=== PATIENT | female | born 1945 | race Caucasian/White ===

== ENCOUNTER 2024-01-26 19:08 | Emergency (ER) | payer MEDICARE, OTHER, SELFPAY ==
[2024-01-26 19:32] VITALS: BP 137/88
[2024-01-26] MEDS: TORADOL 30 MG IM (20:21)
--- NOTE | 2024-01-26 20:49 | ED.GENMED ---
History of Present Illness
<Talon Shaffer PA-C - Last Filed: 01/26/24 23:08>
General
Chief Complaint: Jaw Pain
Time Seen by Provider: 01/26/24 19:46
History of Present Illness
History of Present Illness:
78-year-old female presents the emergency department for evaluation of a left jaw dislocation that began when yawning. She is unable to close the mouth fully. This is never happened in the past
Review of Systems
<Talon Shaffer PA-C - Last Filed: 01/26/24 23:08>
Review of Systems
Allergies reviewed?: Yes
All Other Systems: ROS reviewed and negative except as documented in HPI and ROS
Phy Exam
<Talon Shaffer PA-C - Last Filed: 01/26/24 23:08>
Physical Exam
Physical Exam:
GEN: Well appearing, NAD, WDWN
HEENT: Oral mucosa moist, no scleral icterus, left TMJ deformity consistent with dislocation
Cardiac: Regular rate
Lung: No respiratory distress, no tachypnea
MSK: No gross deformity or injuries
Skin: Good color, no pallor or jaundice, no rashes
Neuro: AO x3, moves all extremities freely
Psych: Calm, cooperative
Course
<Talon Shaffer PA-C - Last Filed: 01/26/24 23:08>
Orders/Labs/Results
Orders:
Orders
01/26/24 20:06
Ketorolac [Toradol] 30 mg IM NOW STA
Vital Signs
Initial and Last Documented VS:
Initial Vital Signs
Temp Pulse Resp BP Pulse Ox
98.0 F 70 18 137/88 98
01/26/24 19:32 01/26/24 19:32 01/26/24 19:32 01/26/24 19:32 01/26/24 19:32
Last Documented Vital Signs
Temp Pulse Resp BP Pulse Ox
98.0 F 70 18 137/88 98
01/26/24 19:32 01/26/24 19:32 01/26/24 19:32 01/26/24 19:32 01/26/24 19:32
<Dano Salguero DO - Last Filed: 01/27/24 01:59>
Orders/Labs/Results
Orders:
Orders
01/26/24 20:06
Ketorolac [Toradol] 30 mg IM NOW STA
Vital Signs
Initial and Last Documented VS:
Initial Vital Signs
Temp Pulse Resp BP Pulse Ox
98.0 F 70 18 137/88 98
01/26/24 19:32 01/26/24 19:32 01/26/24 19:32 01/26/24 19:32 01/26/24 19:32
Last Documented Vital Signs
Temp Pulse Resp BP Pulse Ox
98.0 F 70 18 137/88 98
01/26/24 19:32 01/26/24 19:32 01/26/24 19:32 01/26/24 19:32 01/26/24 19:32
<Talon Shaffer PA-C - Last Filed: 01/26/24 23:08>
MDM/Problems Addressed
MDM/Problems Addressed:
I attempted manual reduction several times unsuccessfully, attending physician Dr. Salguero as well as attending physician Dr. Sullivan both attempted physician and on the final attempt by Dr. Sullivan it was successful. Patient's pain was
dramatically improved. Recommend bracing when yawning and follow-up with OMS
<Talon Shaffer PA-C - Last Filed: 01/26/24 23:08>
*Critical Care Note
Total Time (30-74mins, 75-104mins- exclusive of procedures): Not Applicable
ED Attending Note
<Talon Shaffer PA-C - Last Filed: 01/26/24 23:08>
-
Portions of this chart may have been created with voice recognition software.� Occasional wrong word or��sound alike� substitutions may have occurred due to the inherent limitations of voice recognition software.
<Dano Salguero DO - Last Filed: 01/27/24 01:59>
ED Attending Note
Patient seen and examined by attending physician: Yes
I performed a history and physical exam of patient and discussed management with resident, I reviewed resident's note and agree with documented findings and plan of care.: Yes
ED Attending Note:
Pt yawned and felt mandible dislocate. This occured a few hours prior to arrival and pt was hoping she could get it to pop back in.
VSS
Mouth: Left side of mandible anteriorly dislocated. No difficulty with respirations.
Attemped to reduce left jaw w/o success. Dr. Sullivan was successful
Discharge Plan
Departure
Patient Disposition: Home (Routine Discharge)
Date of Disposition: 01/26/24
Time of Disposition: 20:49
Patient with high blood pressure during this ER visit?: No
Discharge Problem:
Dislocation of temporomandibular joint
Instructions: Temporomandibular Joint (TMJ) Disorders (DC)
Referrals:
Grzegorz Johnson MD [Family Provider] -
Katia Oconnor DMD [Active] -
Activity Restrictions/Additional Instructions:
Brace your jaw when yawning until you can follow up with oral/maxillofacial surgery
Interventions
Interventions:
*General Assessment Last Done: 01/26/24 19:32
*Neglect/Abuse Screening Last Done: 01/26/24 19:32
*Nursing Disposition Last Done: 01/26/24 21:30
ED-EENT Assessment Last Done: 01/26/24 20:41
ED- Cardiac Assessment Last Done: 01/26/24 20:41
Discharge Date and Time
Discharge Date/Time: 01/26/24 21:30
Print Language: SLOVENIAN
== END 2024-01-26 21:30 | disposition home or self-care (01) ==
LOC: EMR 19:08
PROVIDERS: EMERGENCY PHYSICIAN Emergency Medicine; FAMILY PHYSICIAN Student in an Organized Health Care Education/Training Program
DX: S03.02XA Dislocation of jaw, left side, initial encounter (principal); Z88.3 Allergy status to other anti-infective agents; Z88.0 Allergy status to penicillin
CPT/HCPCS: 99284; 21480; 96372